=== PATIENT | female | born 1960 | race Caucasian/White ===

== ENCOUNTER 2020-11-29 23:40 | Inpatient (IN) | payer OTHER, SELFPAY ==
[~2020-11-29] VITALS: Ht 165.1 cm; Wt 65.8 kg
[2020-11-29 23:45] VITALS: BP 138/48
--- NOTE | 2020-11-29 23:53 | NUR ---
Dr. Lund examining patient.
--- NOTE | 2020-11-30 00:11 | NUR ---
60 F WELLNESS CHECK X2 DAYS NO ANSWER. PER EMS PATIENT ANSWERED DOOR WITH SLURRED SPEECH, COAX1 AND COVERED IN FECES. UNKNOWN HX AND UNKNOWN MEDS. BGL 103 PER EMS, CC ALTERED MENTAL STATUS.
--- NOTE | 2020-11-30 00:11 | NUR ---
PT DAVID BLS. TAKEN TO BED 5
--- NOTE | 2020-11-30 00:13 | NUR ---
NORMALLY COAX4 AND GCS 15, COMING FROM [place], LIVES ALONE
--- NOTE | 2020-11-30 01:16 | NUR ---
PT TAKEN TO RADIOLOGY
--- NOTE | 2020-11-30 01:16 | NUR ---
MEDS UNABLE TO BE DRAWN VIA IV, DRAWN BY PHLEB AT THIS TIME.
--- NOTE | 2020-11-30 01:29 | NUR ---
PT RETURN FROM RADIOLOGY
[2020-11-30 01:46] LABS: HEMATOCRIT 36.5 % (36-48); HEMOGLOBIN 12.1 g/dL (12.0-16.0); MEAN CORPUSCULAR HEMOGLOBIN 35 pg (27-31); MEAN CORPUSCULAR HGB CONC 33 g/dL (33-37); MEAN CORPUSCULAR VOLUME 103.9 fL (80-94); PLATELET COUNT (AUTO) 70 K/uL (140-450); RED BLOOD CELL COUNT(AUTO) 3.51 MIL/uL (4.20-5.40); RED CELL DISTRIBUTION WIDTH 18.4 % (11.6-13.7); WHITE BLOOD COUNT (AUTO) 7.5 K/uL (4.8-10.8)
[2020-11-30 02:09] LABS: ACETAMINOPHEN < 0.5 ug/ml (10-30); ALBUMIN 3.1 g/dL (3.4-5.0); ANION GAP 14.2 (8-16); ASPARTATE AMINOTRANSFERASE 38 U/L (15-37); CHLORIDE 103 mmol/L (98-107); CREATININE 0.6 mg/dL (0.6-1.3); GFR ARICAN-AMERICAN 131 mL/min (>90); GLUCOSE 116 mg/dL (74-106); POTASSIUM 3.2 mmol/L (3.5-5.1); SALICYLATE < 2.8 mg/dL (2.8-20.0); SODIUM SERUM 139 mmol/L (136-145); TOTAL BILIRUBIN 1.5 mg/dL (0.0-1.0); UREA NITROGEN, BLOOD 15 mg/dL (7-18)
[2020-11-30 02:20] LABS: LYMPHOCYTES % (MANUAL) 11 % (20-46); MONOCYTES % (MANUAL) 3 % (5-12)
--- NOTE | 2020-11-30 02:29 | NUR ---
patient able to keep simple conversation but still confused to time and age
[2020-11-30 03:25] LABS: APPEARANCE,URINE CLEAR (CLEAR); BILIRUBIN,URINE NEGATIVE (NEGATIVE); BLOOD, URINE NEGATIVE (NEGATIVE); LEUKOCYTE ESTERASE ,URINE NEGATIVE (NEGATIVE); NITRITE, URINE NEGATIVE (NEGATIVE); UGLUCOSE NEGATIVE (NEGATIVE)
--- NOTE | 2020-11-30 03:33 | NUR ---
BLADDER CANCER, CHEMO AT [place]
[2020-11-30 03:45] LABS: COLOR,URINE DARK YELLOW (YELLOW)
[2020-11-30 03:48] LABS: RBC,URINE 0-5 /HPF (0-5); WBC,URINE 0-5 /HPF (0-5)
[2020-11-30] MEDS ORDERED: POTASSIUM CHLORIDE 10 MEQ TABER PO ONE (03:50)
[2020-11-30 03:57] LABS: BARBITURATE, URINE NEGATIVE ng/ml (NEG <=200); BENZODIAZEPINE, URINE NEGATIVE ng/mL (NEG <=200); CANNABINOID, URINE NEGATIVE ng/mL (NEG <=50); COCAINE, URINE NEGATIVE ng/mL (NEG <=300); OPIATE, URINE POSITIVE ng/mL (NEG <=2000); PHENCYCLIDINE SCREEN,URINE NEGATIVE ng/mL (NEG <=25)
--- NOTE | 2020-11-30 07:25 | NUR ---
REPORT RECEIVED FROM AUNG FLOWERS FOR TRANSFER OF CARE FOR SHIFT
--- NOTE | 2020-11-30 07:49 | NUR ---
CONSENT FOR TRANSFER SIGNED BY TWO RN'S DUE TO PATIENT ALTERED AND UNABLE TO SIGN
[2020-11-30] MEDS ORDERED: MAG SULF 2000 MG/WATER PREMIX 50 ML IV PRN (08:20)
[2020-11-30] MEDS ORDERED: POTASSIUM CHLORIDE 10 MEQ TABER PO PRN (08:20)
[2020-11-30] MEDS ORDERED: DOCUSATE SODIUM 100 MG GELCAP PO PRN (08:20)
[2020-11-30] MEDS ORDERED: ACETAMINOPHEN 325 MG TAB PO PRN (08:20)
[2020-11-30] MEDS ORDERED: ONDANSETRON 4 MG/2 ML VIAL IVP PRN (08:20)
[2020-11-30] MEDS ORDERED: ZOLPIDEM 10 MG TAB PO PRN (08:20)
--- NOTE | 2020-11-30 08:26 | NUR ---
PT ADMITTED UNDER LEVEL OF CARE TELE TO DR. WINN. PT TELE HOLD IN ER BED 5
--- NOTE | 2020-11-30 08:35 | NUR ---
PT REPOSITIONED BEDSIDE, PROVIDED WITH FRESH LINEN, AND REOIRENTATED. CURTAIN LEFT OPEN AND PT PLACED BACK ONTO GAMING CASHIER
--- NOTE | 2020-11-30 08:41 | NUR ---
DR. WINN BEDSIDE EVALUATING PATIENT
[2020-11-30] MEDS: DEXT 5% / NACL 0.9% 500 ML IV SCH ×3 (08:58→18:29)
--- NOTE | 2020-11-30 10:18 | NUR ---
PT UNABLE TO RECALL HOME MEDICATIONS AT THIS TIME, PT ALTERED AT THIS TIME
[2020-11-30] MEDS: LORazepam 2 MG/ML VIAL IVP PRN ×4 (12:09→23:30)
--- NOTE | 2020-11-30 12:30 | NUR ---
PT REPOSITIONED IN BED, VSS, WILL CONTINUE TO MONITOR.
--- NOTE | 2020-11-30 14:42 | NUR ---
Patient appears to be resting in bed. Vital Signs within normal limits. Respirations even and unlabored.
--- NOTE | 2020-11-30 18:20 | NUR ---
PT BECOMING AGIATED IN BED AND REMOVING HER CLOTHES. REPOSITIONED BED BACK IN BED AND ATTEMPTED TO REOIRENTATE. PT CONTINUES TO REMOVE HER CLOTHING AND TRY TO GET OUT OF BED
--- NOTE | 2020-11-30 18:32 | NUR ---
PT NOW RESTING IN BED WITH EYES CLOSED. VITAL SIGNS TAKEN AND CHARTED. WILL CONTINUE TO MONITOR
--- NOTE | 2020-11-30 19:22 | NUR ---
Pt report given to AUNG Victor. Transfer of care at this time.
--- NOTE | 2020-11-30 21:00 | NUR ---
PATIENT RIPPED OFF HER IV ACCESS, RN OBTAINED A NEW 22 GAUGE IN HER RIGHT FA, WRAPPED IT UP WITH ELASTIC BANDAGE TO PREVENT FROM BEING REMOVED.
--- NOTE | 2020-11-30 22:10 | NUR ---
11/30/202209 PATIENT WAS RECEIVED FROM ER WHEELED IN THE GURRE[place] ALERT, CONFUSED AND NOT COHERENT TO HERSELF. ON D5NS AT 100 ML/HOUR VIA RIGHT HAND 22 GAUGE.
--- NOTE | 2020-11-30 22:36 | NUR ---
Patient will be admitted to care of DR SOLORZANO. Admited to [facility]. Will go to room 120B. Belongings list completed. Report to ALLISON.
--- NOTE | 2020-12-01 | NUR ---
PATIENT WAS ASLEEP CALMLY
[2020-12-01] MEDS: DEXT 5% / NACL 0.9% 500 ML IV SCH ×4 (00:06→19:00)
--- NOTE | 2020-12-01 02:00 | NUR ---
PATIENT WAS ASLEEP
[2020-12-01 04:00] VITALS: BP 135/79
[2020-12-01 06:07] LABS: BASOPHILS % (AUTO) 0.2 % (0.0-2.0); EOSINOPHILS % (AUTO) 0.4 % (0.0-4.0); HEMATOCRIT 33.1 % (36-48); HEMOGLOBIN 11.2 g/dL (12.0-16.0); LYMPHOCYTES # (AUTO) 0.8 K/uL (2.5-16.5); LYMPHOCYTES % (AUTO) 8.8 % (20.5-51.1); MEAN CORPUSCULAR HEMOGLOBIN 35 pg (27-31); MEAN CORPUSCULAR HGB CONC 34 g/dL (33-37); MEAN CORPUSCULAR VOLUME 103.4 fL (80-94); MONOCYTES # (AUTO) 0.6 K/uL (0.8-1.0); MONOCYTES % (AUTO) 6.6 % (1.7-9.3); NEUTROPHILS # (AUTO) 7.4 K/uL (1.8-7.7); PLATELET COUNT (AUTO) 84 K/uL (140-450); RED CELL DISTRIBUTION WIDTH 17.1 % (11.6-13.7); WHITE BLOOD COUNT (AUTO) 8.8 K/uL (4.8-10.8)
[2020-12-01 06:59] LABS: ANION GAP 17.3 (8-16); CARBON DIOXIDE 19.7 mmol/L (21-32); CREATININE 0.5 mg/dL (0.6-1.3)
[2020-12-01 08:00] VITALS: BP 139/49
--- NOTE | 2020-12-01 08:08 | NUR ---
RECEIVED REPORT FROM WEBSITE PROGRAMMER NURSE. . AOX1, ABLE TO MAKE NEEDS KNOWN. NO C/O PAIN, NO RESPIRATORY DISTRESS . BOWEL AND BLADDER INCONTINENT. IV SITE 22G ON RFA RUNNING D5NS AT 100CC/HR, SKIN INTACT.PATIENT OBSERVED TRYING TO GET OUT OF BED, PATIENT GOT EDUCATION ON FALL RISK AND THE IMPORTANCE OF STAYING ON BED AND CALLING THE NURSE FOR ANY NEED FOR HELP, SAFETY AND FALL PRECAUTIONS IN PLACE. CALL LIGHT WITHIN REACH.
--- NOTE | 2020-12-01 08:20 | NUR ---
ALL REPORTS WERE GIVEN TRANSFER OF CARE ENDORSED.
--- NOTE | 2020-12-01 10:16 | NUR ---
PT ON BED NO COMPLAINS NO SOD NOTED, PT MH IS LOW GPT MEDICATED PRN ORDER, ALL SAFETY MEASURES ON PLACE CALLS LIGHT WITHIN REACH
--- NOTE | 2020-12-01 10:24 | NUR ---
PATIENT HAS BEEN SCREENED AND CATEGORIZED HIGH NUTRITION RISK. PATIENT WILL BE SEEN WITHIN 1-2 DAYS OF ADMISSION. 12/01/[address]
--- NOTE | 2020-12-01 11:03 | NUR ---
RECEIVED TORB FROM DR. SOLORZANO FOR SWALLOW EVALUATION
--- NOTE | 2020-12-01 11:21 | NUR ---
PT ON BED NO COMPLAINS. PT CANT SWALLOW DR SOLORZANO ORDER SWALLOW EVALUATION, PT POTTASIUM AND MG IS LOW, INFORMED DR SOLORZANO , HE WILL PUT AN ORDER FOR REPLACEMENT ALL SAFETY MEASURES ON PLACE CALLS LIGHT WITHIN REACH
[2020-12-01 12:00] VITALS: BP 140/53
[2020-12-01] MEDS ORDERED: NACL 0.9% 1,000 ML IV SCH (12:15)
[2020-12-01] MEDS ORDERED: POTASSIUM CHLORIDE 40 MEQ, LIDOCAINE MPF 1% 25 MG in NACL 0.9% 250 ML IV SCH (12:45)
--- NOTE | 2020-12-01 13:20 | NUR ---
PT ON BED NO COMPLAINS. NO SOD NOTED, GOT CLEANED AND CHANGED. ALL SAFETY MEASURES ON PLACE CALS LIGHT WITHIN REACH
--- NOTE | 2020-12-01 14:47 | NUR ---
PATIENT OBSERVED TRYING TO GET OUT OF BED, PATIENT GOT EDUCATION ON FALL RISK AND THE IMPORTANCE OF STAYING ON BED AND CALLING THE NURSE FOR ANY NEED FOR HELP, NO SOD NOTED SAFETY AND FALL PRECAUTIONS IN PLACE. CALL LIGHT WITHIN REACH.
--- NOTE | 2020-12-01 15:06 | NUR ---
12/01/20 RD INITIAL ASSESSMENT COMPLETED PLEASE REFER TO NUTRITION ASSESSMENT UNDER CARE ACTIVITY FOR ESTIMATED NUTRITIONAL NEEDS. 1. RECOMMEND SWALLOW EVALUATION FOR DIET RECOMMENDATIONS 2. CURRENTLY ON REGULAR DIET 3. RD TO FOLLOW-UP 2-3 DAYS, HIGH RISK ROGELIO ORTIZ RD
--- NOTE | 2020-12-01 15:52 | NUR ---
PT WAS SEEN FOR DYSPHAGIA. PT WAS POCKETING FOR TRIALS OF PUREE DIET. RECOMMENDATION NOTHING BY MOUTH
[2020-12-01 16:00] VITALS: BP 138/60
--- NOTE | 2020-12-01 16:14 | NUR ---
PT IN BED NO SOD NOTED, SWALLOW EVALUATION WAS DONE, AND RECOMMENDED NPO. ALL SAFETY MEASURES ON PLACE, CALLS LIGHT WITHIN REACH
--- NOTE | 2020-12-01 18:03 | NUR ---
PT IN BED NO SOD NOTED, ALL SAFETY MEASURES ON PLACE, CALLS LIGHT WITHIN REACH
--- NOTE | 2020-12-01 19:45 | NUR ---
FULL BED SIDE REPORT GIVEN TO VENEER REPAIRER MACHINE NURSE
[2020-12-01 20:00] VITALS: BP 128/70
--- NOTE | 2020-12-01 21:25 | NUR ---
1900 FOUND PATIENT BREATHING FAST AND PATIENTS SATS WERE 84% ON ROOM AIR. PT DID NOT AROUSE WHEN I CALLED HER NAME. PLACED PATIENT ON 15L NRB MASK. SATS IMPROVED RN AWARE
[2020-12-02] VITALS: BP 134/68
[2020-12-02] MEDS: DEXT 5% / NACL 0.9% 500 ML IV SCH ×4 (00:06→15:29)
[2020-12-02] MEDS: LORazepam 2 MG/ML VIAL IVP PRN ×2 (00:27→09:37)
[2020-12-02 04:00] VITALS: BP 138/60
[2020-12-02 06:19] LABS: BASOPHILS % (AUTO) 0.2 % (0.0-2.0); EOSINOPHILS % (AUTO) 0.4 % (0.0-4.0); HEMATOCRIT 33.6 % (36-48); HEMOGLOBIN 11.2 g/dL (12.0-16.0); LYMPHOCYTES # (AUTO) 0.7 K/uL (2.5-16.5); MEAN CORPUSCULAR HEMOGLOBIN 35 pg (27-31); MEAN CORPUSCULAR HGB CONC 33 g/dL (33-37); MONOCYTES % (AUTO) 12.8 % (1.7-9.3); NEUTROPHILS # (AUTO) 6.3 K/uL (1.8-7.7); NEUTROPHILS % (AUTO) 77.6 % (42.2-75.2); PLATELET COUNT (AUTO) 78 K/uL (140-450); RED BLOOD CELL COUNT(AUTO) 3.23 MIL/uL (4.20-5.40); RED CELL DISTRIBUTION WIDTH 17.3 % (11.6-13.7); WHITE BLOOD COUNT (AUTO) 8.1 K/uL (4.8-10.8)
[2020-12-02 07:30] LABS: ANION GAP 14.9 (8-16); CARBON DIOXIDE 23.4 mmol/L (21-32); CREATININE 0.6 mg/dL (0.6-1.3); POTASSIUM 3.3 mmol/L (3.5-5.1)
--- NOTE | 2020-12-02 07:53 | NUR ---
RECEIVED REPORT FROM RENAL CASE MANAGER NURSE. . AOX1. NO C/O PAIN, NO RESPIRATORY DISTRESS . BOWEL AND BLADDER INCONTINENT. NO IV ACCESS. SKIN INTACT.PATIENT OBSERVED TRYING TO GET OUT OF BED, PATIENT GOT EDUCATION ON FALL RISK AND THE IMPORTANCE OF STAYING ON BED AND CALLING THE NURSE FOR ANY NEED FOR HELP, MODESTA ROTH MADE AWARE THAT THIS PT NEED A SITTER, SAFETY AND FALL PRECAUTIONS IN PLACE. CALL LIGHT WITHIN REACH.
[2020-12-02 08:00] VITALS: BP 148/52
[2020-12-02] MEDS ORDERED: ALBUTEROL SULFATE/IPRATROPIU 3 ML SOL IH PRN (09:15)
--- NOTE | 2020-12-02 09:20 | NUR ---
PER [facility] RESULTS OXYMIZER LITER FLOW INCREASED TO 6L. WILL CONTINUE TO MONITOR.
--- NOTE | 2020-12-02 09:27 | NUR ---
DC PLANNING: CM ATTEMPTED TO SPEAK WITH THE PATIENT AT BEDSIDE. PATIENT WITH OXYMIZER IN PLACE, RAPID BREATHING WITH USE OF ACCESSORY MUSCLES. THE PATIENT MUMBLED IN RESPONSE TO QUESTIONS BUT WAS UNABLE TO SPEAK OR ANSWER. DR SOLORZANO ALSO ROUNDED AND NOTED THE PATIENTS BREATHING PATTERN. PER DOCUMENTATION THE PATIENT IS FROM HOME, CM WILL REACH OUT TO THE CONTACT ON THE FACE SHEET TO GET MORE INFORMATION. GAEL WILL FOLLOW FOR NEEDS. Addendum: 12/02/20 at 1530 by Chelsea Haji CM DC PLANNING: GAEL SPOKE WITH NEHAL AT [facility] ([phone]) AND ASKED THAT THE PATIENT BE TRANSFERRED IN NETWORK. GAEL SENT CLINICALS TO [facility], NOW WAITING TO HEAR IF THERE IS A BED AVAILABLE. GAEL SPOKE WITH THE PATIENTS FRIEND AND RESOURCE MANAGER FORESTER SERGO SMALL BY PHONE. HE STATES THAT HE RUNS HER BUSINESS FOR HER WHICH IS A [employer] IN [place]. HE ALSO STATES THAT THE PATIENT DOES NOT HAVE A HISTORY OF DRUG OR ALCOHOL USE AND IS ASKING WHY SHE IS UNABLE TO SPEAK TODAY WHEN SHE WAS ALERT AND VERBAL IN THE ER. 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 SHE LIVES IN A SINGLE STORY HOUSE BY HERSELF, AND HAS A SHE HAS BEEN FROM FOR 23 YEARS BUT VISITS ALMOST EVERYDAY IN [place]. SERGO WILL CALL GAEL BACK WITH THE PHONE NUMBER FOR BRETT. GAEL WILL FOLLOW FOR NEEDS. Addendum: 12/02/20 at 1622 by Chelsea Haji CM DC PLANNING: PHONE NUMBER FOR BRETT QUIROZANAT IS [phone]. WILL FOLLOW FOR NEEDS.
--- NOTE | 2020-12-02 10:07 | NUR ---
PT ON BED . , PT BREATHING FAST DR SOLORZANO CHECKED HER .PT GOT CLEANED AND CHANGED. PT TRYING TO GET OUT OF BED AGITATED, GOT MEDICATED PRN ORDER , ALL SAFETY MEASURES ON PLACE CALLS LIGHT WITHIN REACH
--- NOTE | 2020-12-02 10:17 | NUR ---
PT IN BED, NEW IV INSERTED, IN HER RIGHT HAND 24G, FLUSHED, PATENT
[2020-12-02] MEDS ORDERED: LEVOFLOXACIN 750 MG/D5W PREMIX 150 ML IV SCH (11:55)
[2020-12-02 12:00] VITALS: BP 143/80
--- NOTE | 2020-12-02 12:10 | NUR ---
PT IN BED NO COMPLAINS NO SOD NOTED. ALL SAFETY MEASURES ON PLACE, CALLS LIGHT WITHIN REACH
--- NOTE | 2020-12-02 14:58 | NUR ---
PT IN BED NO COMPLAINS NO SOD NOTED, ALL SAFETY MEASURES ON PLACE, CALLS LIGHT WITHIN REACH
[2020-12-02] MEDS ORDERED: POTASSIUM CHLORIDE 40 MEQ, LIDOCAINE MPF 1% 25 MG in NACL 0.9% 250 ML IV ONE (15:30)
[2020-12-02] MEDS: ALBUTEROL SULFATE/IPRATROPIU 3 ML SOL IH SCH ×2 (15:47→18:57)
[2020-12-02 16:00] VITALS: BP 153/85
--- NOTE | 2020-12-02 17:22 | NUR ---
pt in bed no comlains no sod noted, we coud not collect sputum culture patient not able to follow command and get the sputum,.pt supposed to be transferred to [facility], to room 408 picking crew supervisor at 1900. all safety measures on place calls light within reach.
--- NOTE | 2020-12-02 19:20 | NUR ---
PT ID REMOVED,ALL PT BELONGING SENT WITH THE PT. PT STABLE, NO SOD NOTED, DISCHARGE POCKET GIVEN AND COPY OF CHART. REPORT GIVEN, PT BAING TRANSFFER TO [facility] ROOM 408
== END 2020-12-02 19:30 | disposition short-term general hospital (02) | DRG 91 ==
LOC: MED 23:40 → MTU 11-30 08:42
PROVIDERS: ADMIT General Practice; ATTEND General Practice
DX: G92.9 Unspecified toxic encephalopathy (principal); J69.0 Pneumonitis due to inhalation of food and vomit; E87.6 Hypokalemia; F17.210 Nicotine dependence, cigarettes, uncomplicated; D69.6 Thrombocytopenia, unspecified; E86.0 Dehydration; E83.42 Hypomagnesemia; Z20.822 Contact with and (suspected) exposure to COVID-19; E11.9 Type 2 diabetes mellitus without complications; Z85.51 Personal history of malignant neoplasm of bladder
CPT/HCPCS: 36415; 36600; 70450; 71045; 80048; 80053; 80305; 81001; 82140; 82550; 82803; 83036; 83735; 84484; 85025; 87081; 92610; 93005; 94640; 97110; 97112; 97163-GP; 97530; 99285; G0480; G0482; J1956; J2001; J2060; J3475; J3480; J7030; Q0092